=== PATIENT | male | born 1950 | race Caucasian/White ===

== ENCOUNTER → 2017-04-29 | Outpatient (CLI) | payer MEDICARE, BC ==
--- NOTE | 2017-04-29 17:37 | Diagnostic Imaging Report ---
TECHNIQUE: Magnetic resonance imaging of the LEFT foot (forefoot) was performed WITHOUT injected contrast. Suboptimal [id number] ratio of the distal forefoot. HISTORY: Blister, second toe, cellulitis, ulcer COMPARISON: None available. DISCUSSION: Bone: Decreased fatty marrow signal diffusely of the second distal phalanx and the adjacent distal aspect of the middle phalanx. Possibly the of associated hyperintense fluid sensitive signal on the provided images. Joints: Severe degenerative changes of the first metatarsophalangeal joint, moderate of the first interphalangeal joint. No effusion. Soft Tissues: Diffuse soft tissue edema. No drainable fluid collection. IMPRESSION: Findings compatible with the sequela of osteomyelitis involving the distal second phalanx and adjacent distal aspect of the second middle phalanx. The findings favor chronic osteomyelitis or possibly osteomyelitis superimposed upon a chronic posttraumatic deformity or chronic postsurgical changes, comparison with radiographs would be helpful. Discussed with EPI Roger via phone on April 29, 2017 at 1732. Signed by: Dr. Juan J Rivera D.O., M.M.M. on 04/29/2017 5:33 PM
== END ==
LOC: MRI 14:35
PROVIDERS: ATTEND Family Medicine
DX: L97.521 Non-pressure chronic ulcer of other part of left foot limited to breakdown of skin (principal); E11.621 Type 2 diabetes mellitus with foot ulcer; L03.032 Cellulitis of left toe

== ENCOUNTER 2017-05-01 09:04 | Outpatient (RCR) | payer MEDICARE, BC | END 2017-05-03 | LOC: WCC 09:04 | PROVIDERS: ATTEND Internal Medicine Infectious Disease | DX: E11.621 Type 2 diabetes mellitus with foot ulcer (principal); M86.172 Other acute osteomyelitis, left ankle and foot; L97.524 Non-pressure chronic ulcer of other part of left foot with necrosis of bone; M10.472 Other secondary gout, left ankle and foot; I10 Essential (primary) hypertension; E78.2 Mixed hyperlipidemia; I25.10 Atherosclerotic heart disease of native coronary artery without angina pectoris | CPT/HCPCS: 36415; 82948; 87071; 87075; 87205; G0463 ==

== ENCOUNTER → 2017-05-05 | Outpatient (CLI) | payer MEDICARE ==
[~2017-05-05] MED LIST: ALLOPURINOL100 MG PO; ASPIR 8181 MG PO; ATORVASTATIN CA20 MG PO; CLOPIDOGREL75 MG PO; GEMFIBROZIL600 MG PO; HYDROCHLOROTHIA25 MG PO; INVANZ1 GM IV; KEPPRA500 MG PO; LISINOPRIL10 MG PO; METFORMIN HCL850 MG PO; NAPROXEN250 MG PO; OMEPRAZOLE40 MG PO; POTASSIUM GLUCO99 MG PO; TAMSULOSIN HCL0.4 MG PO; ULTRAM50 MG PO; VANCOMYCIN1 GM/250 M IV
--- NOTE | 2017-05-05 14:23 | Diagnostic Imaging Report ---
PROCEDURE: A single AP view of the chest. COMPARISON: None. INDICATIONS: line placement FINDINGS: Lines/tubes: Right PICC tip overlies the mid superior vena cava. Lungs: The lungs are well inflated. Calcified granuloma in the right midlung. There is no evidence of pneumonia or pulmonary edema. Pleura: There is no pleural effusion or pneumothorax. Heart and mediastinum: The heart and the mediastinum are unremarkable. Bones: No acute bony abnormality. IMPRESSION: 1. Right PICC tip overlies the mid superior vena cava. 2. No acute cardiopulmonary disease. Dictated by: Papa Botello M.D. on 05/05/2017 at 14:31 Electronically approved by: Papa Botello M.D. on 05/05/2017 at 14:31
== END ==
LOC: DX 12:51
PROVIDERS: ATTEND Internal Medicine Infectious Disease
DX: L97.529 Non-pressure chronic ulcer of other part of left foot with unspecified severity (principal)
CPT/HCPCS: 36569; 71010

== ENCOUNTER 2017-05-12 08:49 | Observation (INO) | payer MEDICARE ==
[~2017-05-12] VITALS: Ht 200.7 cm; Wt 123.8 kg
[2017-05-12] MEDS ORDERED: LISINOPRIL10 MG PO (09:47)
[2017-05-12] MEDS ORDERED: NAPROXEN250 MG PO (09:47)
[2017-05-12] MEDS ORDERED: ATORVASTATIN CA20 MG PO (09:47)
[2017-05-12] MEDS ORDERED: HYDROCHLOROTHIA25 MG PO (09:47)
[2017-05-12] MEDS ORDERED: TAMSULOSIN HCL0.4 MG PO (09:47)
[2017-05-12] MEDS ORDERED: OMEPRAZOLE40 MG PO (09:47)
[2017-05-12] MEDS ORDERED: ULTRAM50 MG PO (09:47)
[2017-05-12] MEDS ORDERED: ALLOPURINOL100 MG PO (09:47)
[2017-05-12] MEDS ORDERED: ASPIR 8181 MG PO (09:47)
[2017-05-12] MEDS ORDERED: GEMFIBROZIL600 MG PO (09:47)
[2017-05-12] MEDS ORDERED: METFORMIN HCL850 MG PO (09:47)
[2017-05-12] MEDS ORDERED: CLOPIDOGREL75 MG PO (09:47)
[2017-05-12 09:49] LABS: BASOPHILS % 0.2 % (0.0-1.0); EOSINOPHILS # (AUTO) 0.1 (0.0-0.4); EOSINOPHILS % 0.5 % (0.0-6.0); HEMATOCRIT 40.5 % (38.2-49.6); LYMPHOCYTES # (AUTO) 0.6 (1.0-3.2); LYMPHOCYTES % 5.1 % (18.0-39.1); MEAN CORPUSCULAR HEMOGLOBIN 29.8 pg (28-32); MEAN CORPUSCULAR HGB CONC 34.6 g/dL (31-35); MEAN CORPUSCULAR VOLUME 86.2 fL (81-99); MONOCYTES # (AUTO) 0.9 (0.2-0.8); MONOCYTES % 7.2 % (4.4-11.3); NEUTROPHILS # (AUTO) 10.3 (2.1-6.9); NEUTROPHILS % 86.4 % (38.7-80.0); PLATELET COUNT 221 x10e3/uL (140-360); RED CELL DISTRIBUTION WIDTH 14.2 % (11.7-14.4)
--- NOTE | 2017-05-12 10:00 | Diagnostic Imaging Report ---
PROCEDURE: CHEST SINGLE (PORTABLE) COMPARISON: 05/05/2017. INDICATIONS: SYNCOPE, FALL FINDINGS: Right upper extremity PICC is unchanged in addition. Lungs remain well-inflated and without consolidation or effusion. Calcified granuloma in the right midlung is unchanged. Stable cardiomediastinal contour. No acute osseous abnormality. Healed left-sided rib fracture. CONCLUSION: No acute cardiopulmonary abnormality. Dictated by: Juan F Mora M.D. on 05/12/2017 at 10:09 Electronically approved by: Juan F Mora M.D. on 05/12/2017 at 10:09
[2017-05-12 10:08] LABS: ALANINE AMINOTRANSFERASE 34 IU/L (0-55); ALBUMIN 3.9 g/dL (3.5-5.0); ALBUMIN/GLOBULIN RATIO 1.1 (0.8-2.0); ALKALINE PHOSPHATASE 96 IU/L (40-150); ANION GAP 13.3 mmol/L (8-16); BLOOD UREA NITROGEN 22 mg/dL (7-26); BUN/CREATININE RATIO 19 (6-25); CALCIUM 9.8 mg/dL (8.4-10.2); CARBON DIOXIDE 26 mmol/L (22-29); CHLORIDE 102 mmol/L (98-107); CREATINE KINASE 1964 IU/L (30-200); CREATININE, SERUM 1.16 mg/dL (0.72-1.25); EST GLOMERULAR FILTRATION RATE > 60 ML/MIN (60-); GLUCOSE 113 mg/dL (74-118); POTASSIUM 4.3 mmol/L (3.5-5.1); SODIUM 137 mmol/L (136-145)
[2017-05-12 10:15] LABS: TROPONIN I 0.026 ng/mL (0-0.300)
[2017-05-12 10:16] LABS: INR 0.95; PROTHROMBIN TIME 13.2 seconds (11.9-14.5)
[2017-05-12 10:17] LABS: PARTIAL THROMBOPLASTIN TIME 29.7 seconds (23.8-35.5)
[2017-05-12 10:18] LABS: BURR CELLS SLIGHT; ELLIPTOCYTE, RBC SLIGHT; EOSINOPHILS % (MANUAL) 1 % (0-7); LYMPHOCYTES % (MANUAL) 6 % (19-48); METAMYELOCYTES % (MANUAL) 2 % (0-0); MONOCYTES % (MANUAL) 2 % (3.4-9.0); NEUTROPHILS % (MANUAL) 89 % (40-74); RBC MORPHOLOGY COMMENT ABNORMAL
[2017-05-12 10:19] LABS: ANISOCYTOSIS MODERATE; PLATELET ESTIMATE ADEQUATE; PLATELET MORPHOLOGY COMMENT NORMAL
--- NOTE | 2017-05-12 10:28 | Diagnostic Imaging Report ---
History: Fall, pain Comparison studies:None Technique: Axial images were obtained from the brain and cervical spine. Coronal and sagittal images reconstructed from the axial data. Intravenous contrast: None Findings: Head CT: Scalp/skull: No abnormalities. No fractures, blastic or lytic lesions. Brain sulci: Mildly prominent. Ventricles: Normal in size and configuration. No hydrocephalus. Extra-axial spaces: No masses. No fluid collections. Parenchyma: Few small hypodensities of the periventricular white matter. No masses, hemorrhage, acute or chronic cortical vascular insults. Sellar/suprasellar region: No abnormalities. Craniocervical junction: Patent foramen magnum. No Chiari one malformation. Atherosclerotic calcifications of the carotid siphons and vertebral arteries. Cervical spine CT: Fractures: None. Soft tissues: No gross abnormalities. Atlantoaxial articulation: No acute abnormality. Degenerative changes.. Alignment: Normal lordosis. No scoliosis. Cervicomedullary junction: No abnormalities. Patent foramen magnum. Vertebrae: No infection or neoplasm. Degenerative changes: At C4-5, disc degeneration with decreased intervertebral space. Posterior disc osteophyte complex, bilateral uncinate process and facet hypertrophy results in moderate canal stenosis, severe right and moderate left foraminal narrowing. At C5-6, disc degeneration with loss of space and sclerotic changes. Diffuse disc osteophyte complex and bilateral uncinate process hypertrophy results in mild canal stenosis and moderate left foraminal narrowing. Incidental findings: Atherosclerotic changes of the carotid bulbs. Impression: Head CT: 1. No acute intracranial abnormality. 2. Mild chronic microvascular ischemic changes of the white matter and mild age-related volume loss. Cervical spine CT: 1. No acute abnormalities. Degenerative changes as described above 2. Cannot exclude ligament, spinal cord and or vascular abnormalities on the basis of this examination. Signed by: DR Jeferson Degroot M.D. on 05/12/2017 10:24 AM
[2017-05-12] MEDS ORDERED: DEXTROSE 50% SYRINGE 50 ML IV PRN (12:00)
[2017-05-12] MEDS ORDERED: ONDANSETRON HCL INJ 2 MG/ML VIAL IV PRN (12:00)
[2017-05-12] MEDS ORDERED: VANCOMYCIN1 GM/250 M IV (12:09)
[2017-05-12] MEDS ORDERED: POTASSIUM GLUCO99 MG PO (12:12)
[2017-05-12 12:15] VITALS: BP 123/69
[2017-05-12 13:48] VITALS: BP 123/69
[2017-05-12] MEDS ORDERED: INVANZ1 GM IV (14:03)
[2017-05-12] MEDS: INSULIN REGULAR, HUMAN 100 UNIT/1 ML 3ML VIAL SQ SCH ×2 (16:30→21:00)
[2017-05-12 17:02] VITALS: BP 100/57
[2017-05-12 17:19] LABS: BILIRUBIN,URINE NEGATIVE (NEGATIVE); KETONES,URINE NEGATIVE (NEGATIVE); LEUKOCYTE ESTERASE ,URINE NEGATIVE (NEGATIVE); NITRITE,URINE NEGATIVE (NEGATIVE); PROTEIN,URINE DIPSTICK NEGATIVE (NEGATIVE); URINE UROBILINOGEN 0.2 mg/dL (0.2 - 1)
[2017-05-12 17:23] LABS: CLARITY,URINE CLEAR (CLEAR); COLOR,URINE YELLOW (YELLOW)
[2017-05-12] MEDS: SODIUM CHLORIDE 0.9% 1000ML 1,000 ML IV SCH ×2 (18:19→21:18)
[2017-05-12] MEDS ORDERED: TRAMADOL HCL 50 MG TAB PO PRN (18:30)
[2017-05-12] MEDS ORDERED: NAPROXEN 250 MG TAB PO PRN (18:30)
[2017-05-12 18:53] LABS: CREATINE KINASE MB 16.8 ng/mL (0.00-5.00); TROPONIN I 0.03 ng/mL (0-0.300)
[2017-05-12 20:00] VITALS: BP 121/75
[2017-05-12] MEDS ORDERED: ATORVASTATIN 20 MG TAB PO SCH (21:00)
[2017-05-12] MEDS: ATORVASTATIN 40 MG TAB PO SCH (23:18)
[2017-05-13] VITALS: BP 106/56
[2017-05-13 02:19] LABS: CREATINE KINASE MB 10.6 ng/mL (0.00-5.00); TROPONIN I 0.013 ng/mL (0-0.300)
[2017-05-13] MEDS: SODIUM CHLORIDE 0.9% 1000ML 1,000 ML IV SCH ×3 (03:49→19:49)
[2017-05-13 04:00] VITALS: BP 109/67
[2017-05-13 06:09] LABS: BASOPHILS % 0.1 % (0.0-1.0); EOSINOPHILS # (AUTO) 0.1 (0.0-0.4); EOSINOPHILS % 1.7 % (0.0-6.0); HEMATOCRIT 31.9 % (38.2-49.6); LYMPHOCYTES # (AUTO) 1.2 (1.0-3.2); LYMPHOCYTES % 16.6 % (18.0-39.1); MEAN CORPUSCULAR HEMOGLOBIN 29.3 pg (28-32); MEAN CORPUSCULAR HGB CONC 33.2 g/dL (31-35); MEAN CORPUSCULAR VOLUME 88.1 fL (81-99); MONOCYTES # (AUTO) 0.8 (0.2-0.8); MONOCYTES % 10.8 % (4.4-11.3); NEUTROPHILS # (AUTO) 4.9 (2.1-6.9); NEUTROPHILS % 70.4 % (38.7-80.0); PLATELET COUNT 153 x10e3/uL (140-360); RED BLOOD COUNT 3.62 x10e6/uL (4.3-5.7); RED CELL DISTRIBUTION WIDTH 14.3 % (11.7-14.4)
[2017-05-13 06:18] LABS: HEMOGLOBIN 10.6 g/dL (14.0-18.0)
[2017-05-13 06:36] LABS: ANION GAP 10.3 mmol/L (8-16); BLOOD UREA NITROGEN 17 mg/dL (7-26); BUN/CREATININE RATIO 20 (6-25); CALCIUM 7.8 mg/dL (8.4-10.2); CARBON DIOXIDE 24 mmol/L (22-29); CHLORIDE 108 mmol/L (98-107); CREATININE, SERUM 0.86 mg/dL (0.72-1.25); EST GLOMERULAR FILTRATION RATE > 60 ML/MIN (60-); GLUCOSE 91 mg/dL (74-118); MAGNESIUM 1.5 MG/DL (1.3-2.1); POTASSIUM 3.3 mmol/L (3.5-5.1); SODIUM 139 mmol/L (136-145)
[2017-05-13] MEDS: INSULIN REGULAR, HUMAN 100 UNIT/1 ML 3ML VIAL SQ SCH ×4 (07:30→21:00)
[2017-05-13 08:14] VITALS: BP 122/64
[2017-05-13] MEDS ORDERED: POTASSIUM CHLORIDE 20 MEQ TAB CR PO STA (08:23)
[2017-05-13] MEDS: SILVER ANTIMICROBIAL WOUND GEL 45ML TOP SCH (09:00)
[2017-05-13] MEDS ORDERED: ASPIRIN 81 MG ENTERIC COATED PO SCH (09:00)
[2017-05-13] MEDS: TAMSULOSIN HCL 0.4 MG CAP PO SCH (09:36)
[2017-05-13] MEDS: METFORMIN HCL 850 MG TAB PO SCH ×2 (09:36→17:10)
[2017-05-13] MEDS: ALLOPURINOL 100 MG TAB PO SCH (09:36)
[2017-05-13] MEDS: LISINOPRIL 10 MG TAB PO SCH (09:36)
[2017-05-13] MEDS: HYDROCHLOROTHIAZIDE 25 MG TAB PO SCH (09:36)
[2017-05-13] MEDS: PANTOPRAZOLE SOD 40 MG TABEC PO SCH (09:36)
[2017-05-13] MEDS: GEMFIBROZIL 600 MG TAB PO SCH ×2 (09:36→17:10)
[2017-05-13] MEDS: CLOPIDOGREL BISULFATE 75 MG TAB PO SCH (09:36)
[2017-05-13] MEDS: ASPIRIN 81 MG CHEW TAB PO SCH (09:36)
[2017-05-13 12:03] VITALS: BP 129/70
[2017-05-13 15:16] VITALS: BP 143/64
[2017-05-13] MEDS ORDERED: GADOBENATE DIMEGLUMINE 1 ML IV ONE (15:43)
--- NOTE | 2017-05-13 16:01 | Consultation ---
DATE OF CONSULTATION: May 13, 2017 at 1:45 p.m. REASON FOR CONSULTATION: Seizure. This is a 66-year-old male who has been receiving antibiotics IV. He was at home for a toe infection. Apparently, he was sleeping and he fell off the bed and suffered tongue bite when he realized he was bleeding from the mouth. He felt somewhat confused, which is the reason for which they brought him to the hospital. Apparently, he had grand mal seizure. No previous history of this spell in the past. At the present time, he is feeling okay. No headaches, no dizziness, no visual disturbance. He is having difficulty eating because of the laceration of the tongue. He denies any chest pain, palpitations, no focal weakness or focal paresthesia. PAST MEDICAL HISTORY: History of hypertension, diabetes mellitus type 2, coronary artery disease. He has cellulitis of the left 2nd toe for which he is getting antibiotics. REVIEW OF SYSTEMS: All 12 steps negative. PHYSICAL EXAMINATION VITAL SIGNS: Blood pressure today is 129/70, pulse 102, temperature 97.9. LUNGS: Clear to auscultation. HEART: Regular sinus rhythm, no murmurs. ABDOMEN: Soft and nontender, no organomegaly. EXTREMITIES: Lower extremities with no edema, no cyanosis, no clubbing. MUSCULOSKELETAL: No back or neck pain. NEUROLOGIC: He is alert. He is oriented x3. Speech is clear. No dysarthria or dysphagia. Cranial nerves: Pupils are both equal and reactive. Extraocular movements were full. Visual curtis were normal. No facial weakness. Tongue protrudes midline. There is a laceration on the tongue. Motor power: Upper and lower extremities show no evidence of gross weakness in either proximal or distal muscles. Plantar stimulation down bilaterally. Coordination: Finger to nose is normal. Deep tendon reflexes: Triceps, biceps and radials 1+. Knee jerk 1+. Ankle jerk absent bilaterally. Plantar stimulation down bilaterally. The patient is able to stand. Romberg test negative. HEAD: Normocephalic. NECK: Supple. Carotid pulsations were present bilaterally. There were no bruits. LABORATORY DATA: CBC with WBC 6900 with hemoglobin 10.3, hematocrit 31.9. The hematocrit yesterday was 40. Hemoglobin yesterday 14 and now it is 10. Platelets 153,000. Chemistry: Sodium 139, potassium 3.3, BUN 17, creatinine 0.6. Estimated GFR greater than 60. Liver enzymes: AST is somewhat elevated at 53 and ALT 34. Creatinine kinase has been elevated. Urinalysis negative. CT scan of the brain shows no acute pathology. There is chronic small vessel disease seen bilaterally. When the patient was in the ER I reviewed the EEG and there is no evidence of any seizure activity. There was evidence of focal dysfunction. The EEG is considered within normal limits. IMPRESSION: 1. Most likely single episode of generalized seizure, etiology indeterminate. 2. Hypertension. 3. Diabetes mellitus. 4. Cellulitis of the left 2nd toe. RECOMMENDATIONS: MRI of the brain and we are going to start preventive medicine like anticonvulsive medication. We are going to put him on Keppra 750 mg, twice a day. Will discuss with the patient again tomorrow and the family for further options. Job#: [id number] GH
[2017-05-13] MEDS ORDERED: LORAZEPAM INJ 2 MG/ML VIAL IV ONE (19:15)
[2017-05-13 19:40] VITALS: BP 140/74
[2017-05-13] MEDS: ATORVASTATIN 40 MG TAB PO SCH (21:02)
[2017-05-13] MEDS: LEVETIRACETAM 500 MG TAB PO SCH (21:02)
[2017-05-14 00:46] VITALS: BP 121/70
[2017-05-14 06:44] VITALS: BP 123/75
[2017-05-14] MEDS: INSULIN REGULAR, HUMAN 100 UNIT/1 ML 3ML VIAL SQ SCH ×3 (07:30→16:18)
[2017-05-14 07:35] VITALS: BP 148/77
[2017-05-14] MEDS: METFORMIN HCL 850 MG TAB PO SCH ×2 (08:04→16:18)
[2017-05-14] MEDS: LEVETIRACETAM 500 MG TAB PO SCH (08:04)
[2017-05-14] MEDS: GEMFIBROZIL 600 MG TAB PO SCH ×2 (08:04→16:17)
[2017-05-14] MEDS: ASPIRIN 81 MG CHEW TAB PO SCH (08:04)
[2017-05-14] MEDS: TAMSULOSIN HCL 0.4 MG CAP PO SCH (08:04)
[2017-05-14] MEDS: HYDROCHLOROTHIAZIDE 25 MG TAB PO SCH (08:04)
[2017-05-14] MEDS: ALLOPURINOL 100 MG TAB PO SCH (08:05)
[2017-05-14] MEDS: PANTOPRAZOLE SOD 40 MG TABEC PO SCH (08:05)
[2017-05-14] MEDS: LISINOPRIL 10 MG TAB PO SCH (08:05)
[2017-05-14] MEDS: CLOPIDOGREL BISULFATE 75 MG TAB PO SCH (08:05)
[2017-05-14] MEDS: SILVER ANTIMICROBIAL WOUND GEL 45ML TOP SCH (08:05)
[2017-05-14] MEDS ORDERED: LORAZEPAM INJ 2 MG/ML VIAL IV SCH (09:15)
--- NOTE | 2017-05-14 11:24 | Diagnostic Imaging Report ---
HISTORY: Generalized seizure, syncope COMPARISON: None TECHNIQUE: Pre-contrast: Sagittal T1; axial T1-IR, MPGR, DWI, FLAIR; Post-contrast: axial, sagittal, and coronal T1. Thin section coronals of the temporal lobes: FLAIR, T2. Intravenous contrast: 20 mL of MultiHance. The study was performed under oral sedation. IMAGE QUALITY: Motion artifact limits evaluation of most sequences, particularly of the postcontrast, coronal high-resolution T2 and FLAIR in the temporal lobes sequences. FINDINGS: Mass: None. Enhancement: No abnormal enhancement of the brain or meninges. Encephalomalacia: No areas. Ischemic changes: Scattered and periventricular white matter T2 hyperintense foci, consistent with moderate chronic microvascular ischemic changes. Calcification/iron: No abnormal deposits. Hippocampi: Grossly no disproportionate atrophy or gliosis. Normal fornices. Vascular: No obvious vascular malformation. Normal flow voids in major arteries and veins.[ Aceves matter: No cortical migration anomalies. Other: Brain volume: Normal for age. Ventricles: No hydrocephalus or displacement. Foramen Magnum: Unremarkable. Sella: Unremarkable. Skull: No focal lesions. Sinuses/mastoids: No significant inflammatory disease. IMPRESSION: Suboptimal study due to motion 1. No intracranial mass, no acute or chronic infarcts. 2. Moderate chronic microvascular ischemic changes. 3. Limited evaluation of the mesial temporal regions, if clinically indicated a repeat coronal FLAIR and T2 over the temporal lobes could be performed under IV sedation. Signed by: Dr. Michelle Renee M.D. on 05/14/2017 11:20 AM
[2017-05-14 11:48] VITALS: BP 129/73
[2017-05-14 15:54] VITALS: BP 129/69
[2017-05-14] MEDS ORDERED: KEPPRA500 MG PO (16:56)
== END 2017-05-14 17:17 | disposition home or self-care (01) ==
LOC: ER 08:49 → ERHOLD 12:46 → IMCU 12:48
DX: R55 Syncope and collapse (principal); R56.9 Unspecified convulsions; E11.51 Type 2 diabetes mellitus with diabetic peripheral angiopathy without gangrene; I25.10 Atherosclerotic heart disease of native coronary artery without angina pectoris; I10 Essential (primary) hypertension; L03.032 Cellulitis of left toe; S01.512A Laceration without foreign body of oral cavity, initial encounter; E11.69 Type 2 diabetes mellitus with other specified complication; M86.9 Osteomyelitis, unspecified
CPT/HCPCS: 36415; 70450; 70553; 71010; 72125; 80048; 80053; 81001; 82550; 82553; 82948; 83735; 84484; 85025; 85610; 85730; 87086; 93005; 95819; 97139; 99284; G0378; J2060; J7030

== ENCOUNTER 2017-05-29 09:51 | Outpatient (RCR) | payer MEDICARE ==
[~2017-05-29 09:51] MED LIST changes: +LIDOCAINE VISC 2% SOLN 15 ML UDC ONE
== END 2017-06-03 ==
LOC: WCC 09:51
PROVIDERS: ATTEND Internal Medicine Infectious Disease
DX: E11.621 Type 2 diabetes mellitus with foot ulcer (principal); L97.524 Non-pressure chronic ulcer of other part of left foot with necrosis of bone; M10.472 Other secondary gout, left ankle and foot; I10 Essential (primary) hypertension; I25.10 Atherosclerotic heart disease of native coronary artery without angina pectoris; E78.2 Mixed hyperlipidemia
CPT/HCPCS: 36415; 82948; G0463 ×5

== ENCOUNTER 2017-06-26 09:24 | Outpatient (RCR) | payer MEDICARE, BC ==
[~2017-06-26 09:24] MED LIST changes: -LIDOCAINE VISC 2% SOLN 15 ML UDC ONE
== END 2017-07-01 ==
LOC: WCC 09:24
PROVIDERS: ATTEND Internal Medicine Infectious Disease
DX: E11.621 Type 2 diabetes mellitus with foot ulcer (principal); M86.172 Other acute osteomyelitis, left ankle and foot; L97.524 Non-pressure chronic ulcer of other part of left foot with necrosis of bone; M10.472 Other secondary gout, left ankle and foot; I10 Essential (primary) hypertension; E78.2 Mixed hyperlipidemia; I25.10 Atherosclerotic heart disease of native coronary artery without angina pectoris; Z01.810 Encounter for preprocedural cardiovascular examination
CPT/HCPCS: 36415; 82948; G0463 ×3